=== PATIENT | female | born 1985 | race Caucasian/White ===

== ENCOUNTER 2018-10-16 17:08 | Emergency (ER) | payer MEDICARE, OTHER ==
[~2018-10-16] VITALS: Ht 157.5 cm; Wt 51.7 kg
[~2018-10-16 17:08] MED LIST: DESO1TAB47; HYDR25CA PO
[2018-10-16 17:14] VITALS: Ht 157.5 cm; Wt 51.7 kg
--- NOTE | 2018-10-16 18:46 | ERD ---
ER Documentation Chief Complaint Chief Complaint headache , dizziness , cold symptoms x 4 days HPI This is a 33-year-old female patient who presents emergency room with complaint of heart palpitations, dizziness, heaviness to right arm, shortness of breath, sharp stabbing pain to right upper quadrant with inspiration. No fevers, no nausea vomiting or diarrhea, no diaphoresis. Pain is not related to eating or drinking. Family states patient has been under a lot of stress due to family issues and has decreased oral intake. Patient is deaf, sister provided interpretation during assessment ROS All systems reviewed and are negative except as per history of present illness. Medications Home Meds Active Scripts Hydroxyzine Pamoate* (Vistaril*) 25 Mg Capsule, 25 MG PO Q6H PRN for ANXIETY for 14 Days, #28 CAP Prov:ANGELICA PACHECO [employer] 10/16/18 Discontinued Reported Medications Desog-Et Estra-Ethinyl Estradiol (Mircette 28 Day Tablet) 1 Tab Tablet 06/18/12 Allergies Allergies: Coded Allergies: No Known Allergy (Unverified , 10/16/18) PMhx/Soc Patient is deaf Medical and Surgical Hx: pt denies Medical Hx, pt denies Surgical Hx History of Surgery: No Anesthesia Reaction: No Hx Neurological Disorder: No Hx Respiratory Disorders: No Hx Cardiac Disorders: No Hx Psychiatric Problems: No Hx Miscellaneous Medical Probl: No Hx Alcohol Use: No Hx Substance Use: No Hx Tobacco Use: No FmHx Family History: No diabetes, No coronary disease, No other Physical Exam Vitals Vital Signs Date Temp Pulse Resp B/P (MAP) Pulse Ox O2 O2 Flow FiO2 Time Delivery Rate 10/16/18 99.9 112 18 133/72 99 17:14 (92) Physical Exam Const: No acute distress Head: Atraumatic Eyes: Normal Conjunctiva, PERRL ENT: Normal External Ears, Nose and Mouth. Pharynx pink, moist, no lesions, no exudate Neck: Full range of motion. No meningismus. No lymphadenopathy Resp: Equal chest rise, decreased breath sounds in right lung [place] Cardio: Regular rate and rhythm, no murmurs, normal S1/S2 Abd: Soft, non tender, non distended. Normal bowel sounds, no rebound, no guarding, neg urbina, neg mcburny Skin: No petechiae or rashes Back: No midline or flank tenderness, no cvt Ext: No cyanosis, or edema. FROM at BL shoulders and BLUE Neur: Awake and alert, CNII-XII intact, equal smile, steady gait, no paresthesia, sensation equal, paraeducator strength 5/5 Psych: Anxious mood and Affect, no SI, no HI Result Diagram: 10/16/184 10/16/181843 Results 24 hrs Laboratory Tests Test 10/16/18 18:44 10/16/18 18:56 10/16/18 18:57 White Blood Count 11.0 10^3/ul Red Blood Count 4.46 10^6/ul Hemoglobin 13.6 g/dl Hematocrit 42.5 % Mean Corpuscular Volume 95.3 fl Mean Corpuscular Hemoglobin 30.5 pg Mean Corpuscular 32.0 g/dl Hemoglobin Concent Red Cell Distribution Width 14.1 % Platelet Count 249 10^3/UL Mean Platelet Volume 11.5 fl Immature Granulocytes % 0.200 % Neutrophils % 77.1 % Lymphocytes % 18.1 % Monocytes % 4.3 % Eosinophils % 0.1 % Basophils % 0.2 % Nucleated Red Blood Cells % 0.0 /100WBC Immature Granulocytes # 0.020 10^3/ul Neutrophils # 8.5 10^3/ul Lymphocytes # 2.0 10^3/ul Monocytes # 0.5 10^3/ul Eosinophils # 0.0 10^3/ul Basophils # 0.0 10^3/ul Nucleated Red Blood Cells # 0.0 10^3/ul Sodium Level 136 mmol/L Potassium Level 4.8 mmol/L Chloride Level 104 mmol/L Carbon Dioxide Level 14 mmol/L Anion Gap 18 Blood Urea Nitrogen 9 mg/dl Creatinine 0.61 mg/dl Est Glomerular Filtrat Rate mL/min > 60 mL/min Glucose Level 68 mg/dl Calcium Level 9.7 mg/dl Troponin I < 0.012 ng/ml Lipase 51 U/L Bedside Urine pH (LAB) 5.5 Bedside Urine Protein (LAB) 1+ Bedside Urine Glucose (UA) Negative Bedside Urine Ketones (LAB) 4+ Bedside Urine Blood 1+ Bedside Urine Nitrite (LAB) Negative Bedside Urine Leukocyte Esterase Negative (L POC Beta HCG, Qualitative NEGATIVE Procedures/MDM PROCEDURES/MDM EKG: Read by Dr. Nam, attending physician. EKG shows normal sinus rhythm at a rate of 79 bpm. No arrhythmias, acute ST elevations or T wave changes were noted. DIAGNOSTIC IMAGING: Read by radiologist. Chest Xray No infiltrate, no pneumonia LAB INTERPRETATION: No slight leukocytosis, no anemia, normal kidney function, hypoglycemia, negative troponin, negative lipase UA negative for or UTI -Medications: Patient declines MDM: Is a very well-appearing 33-year-old female patient who presents with complaint of heaviness to right arm with palpitations. Family states that she has been under a lot of stress lately which may be contributing to her symptoms. Work-up today not suggestive of cardiac ischemia, EKG, troponin, chest x-ray negative for cardiac dysfunction. Low suspicion for PE as patient Wells criteria is 0, she does not smoke, no recent travel, no hormone therapy, no pain in legs, no blood dyscrasia. The patient is clinically well appearing and stable. Symptoms are not suggestive of cardiac ischemia, pulmonary embolus, aortic dissection, or other serious etiology. These diagnoses have been considered and excluded clinically and with additional diagnostic studies as indicated. Nonetheless, it is understood by both the patient and provider that no clinical or diagnostic assessment can entirely exclude such diseases. Chest pain precautions have been given and the patient has been advised to return for worsening symptoms or any concerns. Lab work and urinalysis is suggestive of dehydration. Patient's family states she has had decreased oral intake due to stress over her family issues. Patient and family have been instructed on taking patient to psychological counseling, resources have been provided. Suicide hotline also provided in discharge instructions. Vistaril prescription provided to help treat anxiety. Patient and family has been instructed to return patient to emergency room immediately w ith any thoughts of self-harm or harm of others or if patient is no longer caring for herself appropriately. DISPOSITION and PLAN: RX: The patient has been discharge home to follow-up with community physician. Departure Diagnosis: Primary Impression: Heart palpitations Additional Impression: Stress reaction Condition: Stable ANGELICA PACHECO NP Oct 16, 2018 18:45
[2018-10-16 20:16] VITALS: BP 131/78; PULSE 91; RESP 19
== END 2018-10-16 20:17 | disposition home or self-care (01) ==
LOC: FTE 17:08
DX: F43.9 Reaction to severe stress, unspecified (principal)
CPT/HCPCS: 71045; 80048; 81003; 81025; 83690; 84484; 85025; 93005